=== PATIENT | female | born 1995 | race Hispanic/Latino ===

== ENCOUNTER 2022-10-31 15:00 | Day surgery (SDC) | payer OTHER ==
[2022-10-31 15:34] VITALS: BMI 44.6
[2022-10-31] MEDS ORDERED: hydrALAZINE 20 MG/ML VIAL SLOW IVP PRN (17:01)
== END 2022-10-31 20:30 | disposition home or self-care (01) ==
LOC: CSHLD/OP 15:00
PROVIDERS: ATTEND Obstetrics & Gynecology
DX: O47.1 False labor at or after 37 completed weeks of gestation (principal); Z3A.37 37 weeks gestation of pregnancy
CPT/HCPCS: 99283

== ENCOUNTER 2022-11-07 19:40 | Day surgery (SDC) | payer OTHER ==
[2022-11-07 20:14] VITALS: BMI 46.3
[2022-11-07] MEDS ORDERED: hydrALAZINE 20 MG/ML VIAL SLOW IVP PRN (20:37)
[2022-11-07 21:09] LABS: Fetal Membranes Rupture No Membranes Rupture (No Rupture)
== END 2022-11-07 22:14 | disposition home or self-care (01) ==
LOC: CSHLD/OP 19:40
PROVIDERS: ATTEND Obstetrics & Gynecology
DX: O47.1 False labor at or after 37 completed weeks of gestation (principal); O99.283 Endocrine, nutritional and metabolic diseases complicating pregnancy, third trimester; E03.9 Hypothyroidism, unspecified; Z3A.38 38 weeks gestation of pregnancy
CPT/HCPCS: 84112; 99285

== ENCOUNTER 2022-11-08 12:15 | Inpatient (IN) | payer OTHER ==
[2022-11-08] MEDS ORDERED: Methylergonovine 0.2 MG/ML VIAL IM PRN ×2 (13:23→19:43)
[2022-11-08] MEDS ORDERED: Butorphanol Tartrate 1 MG/ML VIAL SLOW IVP PRN (13:23)
[2022-11-08] MEDS ORDERED: Carboprost 250 MCG/ML AMP IM PRN (13:23)
[2022-11-08] MEDS ORDERED: hydrALAZINE 20 MG/ML VIAL SLOW IVP PRN ×2 (13:23→19:43)
[2022-11-08] MEDS ORDERED: HYDROcodone/Acetaminophen 5/325 mg Tablet PO PRN ×3 (13:23→19:43)
[2022-11-08] MEDS ORDERED: Promethazine HCl 25 MG/ML VIAL IM PRN ×2 (13:23→19:43)
[2022-11-08] MEDS ORDERED: Lidocaine 1% (PF) 30 ML VIAL SC PRN (13:23)
[2022-11-08] MEDS ORDERED: Tranexamic Acid 1,000 MG in Sodium Chloride 0.9% 250 ML 250 ML IVPB PRN (13:23)
[2022-11-08] MEDS ORDERED: Misoprostol 200 MCG TAB PR PRN (13:23)
[2022-11-08] MEDS ORDERED: Acetaminophen 500 MG TAB PO PRN (13:23)
[2022-11-08] MEDS ORDERED: Ondansetron PF 4 MG/2 ML Vial IVP PRN ×2 (13:23→19:43)
[2022-11-08] MEDS ORDERED: Diphenoxylate HCl/Atropine Tablet PO PRN ×2 (13:23)
[2022-11-08] MEDS ORDERED: Ibuprofen 800 MG TAB PO PRN (13:23)
[2022-11-08] MEDS ORDERED: NS w/ Oxytocin 30 units 500 ML IV SCH ×3 (13:30→19:43)
[2022-11-08] MEDS ORDERED: Lactated Ringer's 1,000 ML IV SCH (13:30)
[2022-11-08 13:36] LABS: Hemoglobin 12.4 g/dL (12.0-15.5); Mean Corpuscular HGB CONC 33.7 g/dL (32.0-36.0); Mean Corpuscular Hemoglobin 30.2 pg (27.0-33.0); Mean Corpuscular Volume 89.5 fl (81.6-98.3); Platelet Count 244 10x3/uL (150-450); Red Blood Cell (RBC) Count 4.11 10x6/uL (3.90-5.03); White Blood Cell (WBC) Count 9.8 10x3/uL (3.5-10.5)
[2022-11-08 14:04] LABS: HBSAg Index 0.19 S/CO (0-0.99); Hep B Surf Ag Non-Reactive S/CO (NonReactive)
[2022-11-08 14:06] LABS: Syphilis Antibody Nonreactive (Nonreactive); Syphilis Antibody Index 0.08 S/CO (<1.00 Non-Reactive)
[2022-11-08 15:13] LABS: SARS-CoV-2 NAA Rapid Test Not Detected (NotDetected)
[2022-11-08] MEDS ORDERED: Tranexamic Acid 1,000 MG/10 ML VIAL ONE (17:39)
[2022-11-08] MEDS ORDERED: Carboprost 250 MCG/ML AMP ONE (17:39)
[2022-11-08] MEDS ORDERED: Methylergonovine 0.2 MG/ML VIAL ONE (17:39)
[2022-11-08] MEDS ORDERED: Misoprostol 200 MCG TAB ONE (17:39)
[2022-11-08 18:44] LABS: HIV (1/2) Antibody/Antigen Non-Reactive (NonReactive); HIV 1/2 INDEX 0.13 S/CO (<1.00)
[2022-11-08] MEDS ORDERED: Boostrix 0.5 ML (Tdap) VIAL (>/=7 yrs of age) IM ONE (19:43)
[2022-11-08] MEDS ORDERED: Lanolin Ointment 7 GM TUBE TOP PRN (19:43)
[2022-11-08] MEDS ORDERED: Measles/Mumps/Rubella 10 MCG/0.5 ML VIAL SC ONE (19:43)
[2022-11-08] MEDS ORDERED: Zolpidem Tartrate 5 MG TAB PO PRN (19:43)
[2022-11-08] MEDS ORDERED: diphenhydrAMINE 25 MG CAP PO PRN (19:43)
[2022-11-08] MEDS ORDERED: Preparation H Ointment 28 GM TUBE PR PRN (19:43)
[2022-11-08] MEDS ORDERED: Varicella virus, LIVE 0.5 ML VIAL SC ONE (19:43)
[2022-11-08] MEDS ORDERED: Benzocaine-Menthol 82.5 ML CAN TOP PRN (19:43)
[2022-11-08] MEDS ORDERED: Milk Of Magnesia 30 ML UDCUP PO PRN (19:43)
[2022-11-08] MEDS ORDERED: Bisacodyl 10 MG SUPP PR PRN (19:43)
[2022-11-08] MEDS ORDERED: Ibuprofen 800 MG TAB PO SCH (22:00)
[2022-11-08] MEDS: Docusate 100 MG CAP PO SCH (22:04)
[2022-11-09] MEDS: HYDROcodone/Acetaminophen 5/325 mg Tablet PO PRN ×5 (00:38→20:04)
[2022-11-09 03:39] LABS: Hemoglobin 10.3 g/dL (12.0-15.5); Mean Corpuscular HGB CONC 33.2 g/dL (32.0-36.0); Mean Corpuscular Hemoglobin 29.6 pg (27.0-33.0); Mean Corpuscular Volume 89.1 fl (81.6-98.3); Mean Platelet Volume 11.6 fl (7.4-10.4); Platelet Count 216 10x3/uL (150-450); RBC Distribution Width 14.1 % (11.5-14.5); Red Blood Cell (RBC) Count 3.48 10x6/uL (3.90-5.03); White Blood Cell (WBC) Count 11.2 10x3/uL (3.5-10.5)
[2022-11-09] MEDS: Ibuprofen 800 MG TAB PO SCH ×3 (03:53→18:55)
[2022-11-09] MEDS: Ferrous Sulfate 325 MG TAB PO SCH ×2 (09:09→17:39)
[2022-11-09] MEDS: Prenatal Vitamin 1 TAB PO SCH (09:55)
[2022-11-09] MEDS: Docusate 100 MG CAP PO SCH ×2 (09:55→22:04)
[2022-11-09 23:54] VITALS: BMI 45.7
[2022-11-10] MEDS: HYDROcodone/Acetaminophen 5/325 mg Tablet PO PRN ×3 (00:51→11:34)
[2022-11-10] MEDS: Ibuprofen 800 MG TAB PO SCH ×3 (02:00→09:06)
[2022-11-10 07:35] VITALS: BP 123/57; TEMP 97.7
[2022-11-10] MEDS: Ferrous Sulfate 325 MG TAB PO SCH (08:36)
[2022-11-10] MEDS: Prenatal Vitamin 1 TAB PO SCH (09:06)
[2022-11-10] MEDS: Docusate 100 MG CAP PO SCH (09:06)
== END 2022-11-10 16:00 | disposition home or self-care (01) | DRG 807 ==
LOC: CSHLD 12:15 → CSHPED 20:55
PROVIDERS: ADMIT Obstetrics & Gynecology; ATTEND Obstetrics & Gynecology
PROC: 10E0XZZ Delivery of Products of Conception, External Approach (ICD-10-PCS; principal; 2022-11-08)
DX: O80 Encounter for full-term uncomplicated delivery (principal); Z37.0 Single live birth; Z3A.38 38 weeks gestation of pregnancy; Z20.822 Contact with and (suspected) exposure to COVID-19
CPT/HCPCS: 36415; 84112; 85027; 86780; 86850; 86900; 86901; 87340; 87389; 99285; J2210; J2405; J2590; J3490; U0002